=== PATIENT | male | born 1985 | race Caucasian/White ===

== ENCOUNTER → 2018-05-29 08:25 | Outpatient (CLI) | payer BC, SELFPAY ==
--- NOTE | 2018-05-29 08:27 | RAD_ITS ---
STUDY: X-RAY - RIGHT SHOULDER REASON FOR EXAM: Male, 33 years old. Shoulder pain, no injury TECHNIQUE: 3 view(s) of the shoulder. COMPARISON: None. FINDINGS: Normal glenohumeral articulation. Normal acromioclavicular joint. Normal acromion. Normal humeral head and visualized proximal humerus. The soft tissue structures are unremarkable. Normal visualized pulmonary apex. RAD/Shoulder min 2 Views IMPRESSION: Normal x-ray examination of the shoulder. Electronically Signed: Syl Concepcion MD at 4:29 EDT , Service support ,
== END ==
PROVIDERS: Referring Provider Physician Assistant; Visit Provider Physician Assistant
DX: M25.511 Pain in right shoulder (principal)
CPT/HCPCS: 73030

== ENCOUNTER → 2020-02-18 | Outpatient (CLI) | payer OTHER, SELFPAY ==
[2020-02-18 08:16] VITALS: BMI 23.5
--- NOTE | 2020-02-18 08:19 | RAD_ITS ---
STUDY: X-RAY - RIGHT SHOULDER REASON FOR EXAM: Male, 34 years old. PAIN, LIMITED ROM TECHNIQUE: Three view(s) of the shoulder. COMPARISON: 05/29/2018 FINDINGS: Normal glenohumeral articulation. Normal acromioclavicular joint. Normal acromion. Normal humeral head and visualized proximal humerus. The soft tissue structures are unremarkable. Normal visualized pulmonary apex. RAD/Shoulder min 2 Views IMPRESSION: Normal x-ray examination of the shoulder. Electronically Signed: Lawrence Courtney MD at 10:00 EDT , Service support ,
== END | disposition home or self-care (01) ==
LOC: HPRAD 08:19
PROVIDERS: Referring Provider Physician Assistant; Visit Provider Physician Assistant
DX: M25.511 Pain in right shoulder (principal)
CPT/HCPCS: 73030

== ENCOUNTER → 2020-03-03 06:47 | Outpatient (CLI) | payer OTHER, SELFPAY ==
[2020-02-18 08:16] VITALS: BMI 23.5
--- NOTE | 2020-03-03 06:48 | MRI_ITS ---
STUDY: MRI RIGHT SHOULDER REASON FOR EXAM: Male, 34 years old. chronic rt shoulder pain TECHNIQUE: Standardized fat and water weighted pulse sequences were obtained in all 3 orthogonal planes. COMPARISON: X-ray February 18, 2020. FINDINGS: Tendinosis of the supraspinatus. Tendinosis of the infraspinatus with partial intrasubstance distal tendon tear, series 4 image 06/18. Normal subscapularis tendon. Normal teres minor tendon. Normal supraspinatus muscle. Normal infraspinatus muscle. Normal subscapularis muscle. Normal teres minor muscle. Normal glenohumeral articulation. There is small joint effusion. There are small cysts or erosions of the posterior lateral and anterior medial humeral head. Normal biceps labral complex. Normal intracapsular long biceps tendon. Normal labrum. Normal capsulo- ligamentous complex. Normal rotator interval. Normal acromioclavicular articulation. There is a Type II morphology (curved) acromion, with a neutral orientation. There is no subacromial-subdeltoid bursal fluid. Normal visualized coracohumeral and coracoacromial ligaments. Normal quadrilateral space. Normal axillary space. Normal deltoid muscle. Normal trapezius muscle. MRI/Upper Ext Joint Only(Routine) IMPRESSION: Tendinosis with partial tear of the infraspinatus. No full-thickness rotator cuff tear. Electronically Signed: Gabriel Putnam MD at 9:30 EDT , Service support ,
== END ==
PROVIDERS: Referring Provider Physician Assistant; Visit Provider Physician Assistant
DX: M75.111 Incomplete rotator cuff tear or rupture of right shoulder, not specified as traumatic (principal); M24.811 Other specific joint derangements of right shoulder, not elsewhere classified; M25.511 Pain in right shoulder; G89.29 Other chronic pain
CPT/HCPCS: 73221

== ENCOUNTER → 2023-08-11 | Outpatient (CLI) | payer OTHER, SELFPAY ==
--- NOTE | 2023-08-11 15:27 | MRI_ITS ---
EXAM: MR CERVICAL SPINE WITHOUT INTRAVENOUS CONTRAST CLINICAL INDICATION: pain TECHNIQUE: Multiplanar and multisequence MR images of the cervical spine without intravenous contrast were performed. COMPARISON: Cervical spine radiographs, 07/18/2023. FINDINGS: VERTEBRAE: Straightening of the expected cervical lordosis may be in part positional. Normal craniocervical junction and cervicothoracic junction. No spondylolisthesis. SPINAL CORD: Unremarkable in signal and morphology. SOFT TISSUES: No significant abnormality. No prevertebral soft tissue swelling. LYMPH NODES: No significant abnormality. There is no cervical adenopathy. DISCS/SPINAL CANAL/NEURAL FORAMINA: C2-C3: No significant abnormality. Normal disc height and morphology. Normal spinal canal. Normal neuroforamina. C3-C4: No significant abnormality. Normal disc height and morphology. Normal spinal canal. Normal neuroforamina. C4-C5: No significant abnormality. Normal disc height and morphology. Normal spinal canal. Normal neuroforamina. C5-C6: No significant abnormality. Normal disc height and morphology. Normal spinal canal. Normal neuroforamina. C6-C7: Mild disc height loss and disc desiccation. Central disc herniation and mild facet and uncovertebral joint arthrosis. Mild spinal canal stenosis and mild bilateral neural foraminal narrowing. C7-T1: No significant abnormality. Normal disc height and morphology. Normal spinal canal. Normal neuroforamina. MRI/Spine Cervical (Routine) IMPRESSION: Degenerative changes particularly at C6-C7 resulting in mild spinal canal and neural foraminal stenosis at this level. No spinal cord signal abnormality. Electronically Signed: Umair Guerra DO at 17:58 EST ,
--- NOTE | 2023-08-11 15:27 | MRI_ITS ---
EXAM: MR LEFT UPPER EXTREMITY WITHOUT INTRAVENOUS CONTRAST, SHOULDER CLINICAL INDICATION: pain TECHNIQUE: Multiplanar and multisequence MR images of the left shoulder without intravenous contrast. COMPARISON: Left shoulder radiographs, 07/18/2023. FINDINGS: TENDONS: SUPRASPINATUS: Mild insertional signal abnormality of the distal supraspinatus tendon without a discrete tear. INFRASPINATUS: No significant abnormality. Intact. SUBSCAPULARIS: No significant abnormality. Intact. TERES MINOR: No significant abnormality. Intact. BICEPS BRACHII, LONG HEAD: No significant abnormality. The extra-articular biceps tendon is in the bicipital groove. The intra-articular biceps tendon is normal. LIGAMENTS: GLENOHUMERAL: No significant abnormality. Intact. MUSCLES: No significant abnormality. No rotator cuff muscle atrophy. FLUID: No significant abnormality. No joint effusion. No subacromial-subdeltoid space bursal fluid. CARTILAGE: No significant abnormality. Articular cartilage intact. GLENOID LABRUM: Linear peripheral signal abnormality in the anterior and anterior superior glenoid labrum perhaps indicating a tear. BONES/JOINTS: Mild acromioclavicular joint arthrosis. No fracture. No abnormal bone marrow signal. OTHER SOFT TISSUES: No significant abnormality. No rotator interval edema. MRI/Upper Ext Joint Only(Routine) IMPRESSION: 1. Linear peripheral signal abnormality in the anterior and anterior superior glenoid labrum perhaps indicating a tear. This is incompletely assessed on this nonarthrographic exam. 2. Mild acromioclavicular joint arthrosis. 3. Mild supraspinatus insertional tendinopathy. Electronically Signed: Umair Guerra DO at 17:57 EST ,
--- OUTSIDE RECORDS SUMMARY | 2023-08-11 15:39 | XMS RPT_ITS | CCD ---
Author Name Unknown Address [address] [place] [address] Organization [facility] Care Team Providers Care Assistant Manager Quality Management Name Role Phone Caitlin Davis Unavailable Unavailable Unavailable RADHA HORTON Attending Unavail able TABITHA, PHYSICIAN Primary Care Unavailable Caitlin Davis Unavailable MaxjordanChuck reedine Unavailable Unavailable Yaneli Oviedo Unavailable Ms. Yakelni Moore Attending Unavail Ms. Caitlin Norris Primary Care CAITLIN Alva Primary Care Unavailable MD YANELI OVIEDO Referring MD YANELI Chaudhry Attending MD YANELI Chaudhry Attending CAITLIN Alva Primary Care Unavailable MD YANELI OVIEDO Referring Unavailabl e Medications Current Medications Medication Drug Class(es) Dates Sig (Normalized) Sig (Original) oseltamivir 75 mg oral capsule (1 source) Neuraminidase Inhibitor Start: 06-20-2022 End: 06-24-2022 take 1 capsule by mouth twice daily Tamiflu 75 mg oral capsule ; 1 cap(s) orally 2 times a day Quantity: 10 Refills: 0 Ordered: 20-Jun-2022 Yakelin Moore Start: 20-Jun-2022 End: 24-Jun-2022 Generic Substitution Allowed Comments: Check with your doctor before becoming .Finish all this medication unless otherwise directed by prescriber. Completed/Discontinued Medications Medication Drug Class(es) Dates Sig (Normalized) Sig (Original) Multivitamins TABS (3 sources) Multivitamins TA BS Quantity: 0 Refills: 0 Ordered: 24-Apr-2022 DO Active No Reported Medications (2 sources) No Reported Medi cations Quantity: 0 Refills: 0 Ordered: -Aug-2020 DO Active Problems Problem Classification Problem Date Documented Date Episodic/Chronic Contraceptive and procreative management (2 sources) Contraception status; Translations: [Sterilization] Episodic Diabetes mellitus without complication (5 sources) Hyperglycemia; Translations: [Other abnormal glucose] Episodic Fever of unknown origin (3 sources) Fever; Translations: [Fever, unspecified] Onset: 06-20-2022 06-20-2022 Episodic Inflammation; infection of eye (except that caused by tuberculosis or sexually transmitteddisease) (3 sources) Acute infectious conjunctivitis; Translations: [Other mucopurulent conjunctivitis] Episodic Influenza (2 sources) Influenza due to Influenza A virus; Translations: [Influenza with other respiratory manifestations] Onset: 06-20-2022 06-20-2022 Episodic Influenza (1 source) Influenza 06-20-2022 Lymphadenitis (3 sources) Cervical lymphadenopathy; Translations: [Enlargement of lymph nodes] Episodic Other lower respiratory disease (1 source) Shortness of breath; Translations: [Shortness of breath] Onset: 06-20-2022 Episodic Other nervous system disorders (1 source) Anesthesia of skin; Translations: [Anesthesia of skin] Onset: 06-20-2022 Episodic Other screening for suspected conditions (not mental disorders or infectious disease) (14 sources) Patient encounter status; Translations: [Screening for diabetes mellitus] Onset: 06-20-2022 Episodic Screening and history of mental health and substance abuse codes (3 sources) Ex-tobacco user; Translations: [Personal history of tobacco use] Episodic Skin and subcutaneous tissue infections (3 sources) Impetigo; Translations: [Impetigo] Episodic Unclassified (2 sources) FEVER, FATIGUE 06-20-2022 Results Test Name Value Interpretation Reference Range Facil ity Vital Signs Date Time Vital Sign Value Performing Clinician Facility 08-07-2022 15:51-0500 Body height 170.18 cm Caitlin Davis Work Phone: [facility] Work Phone: 08-07-2022 15:51-0500 Body mass index (BMI) [Ratio] 24.43 kg/m2 Caitlin Davis Work Phone: [facility]Jmhqdhb[facility]Iyogfes Work Phone: 08-07-2022 15:51-0500 Body surface area Derived from formula 1.82 m2 Caitlin Davis Work Phone: NL[facility]Amnkban[facility]Gjcmugh Work Phone: 08-07-2022 15:51-0500 Body weight 70.76 kg Caitlin L Baldo Work Phone: PQ-Tkknmfb-Rlbtxxv Work Phone: 08-07-2022 15:51-0500 Respiratory rate 16 /min Caitlin L Baldo Work Phone: [facility] Work Phone: 06-20-2022 23:20-0500 Body temperature 100.04 [degF] Caitlin Davis Other Phone: [facility] 06-20-2022 23:20-0500 Diastolic blood pressure 68 mm[Hg] Caitlin Davis Other Phone: [facility] 06-20-2022 23:20-0500 Heart rate 103 /min Caitlin Davis Other Phone: [facility] 06-20-2022 23:20-0500 Respiratory rate 16 /min Caitlin Baldo Other Phone: [facility] 06-20-2022 23:20-0500 SaO2% (BldA) [Mass fraction] 95 % Caitlin Davis Other Phone: [facility] 06-20-2022 23:20-0500 Systolic blood pressure 110 mm[Hg] Caitlin Davis Other Phone: [facility] 06-20-2022 20:58-0500 Body height 170.1 cm Caitlin Davis Other Phone: [facility] 06-20-2022 20:58-0500 Body weight 68.2 kg Caitlin Davis Other Phone: [facility] 04-24-2022 15:41-0400 Body height 170.18 cm Caitlin L Baldo Work Phone: EC[facility]Wwmxhtx-Pzaelyv Work Phone: 04-24-2022 15:41-0400 Body mass index (BMI) [Ratio] 24.43 kg/m2 Caitlin L Baldo Work Phone: DY[facility]Gcschpy-Oxzibai Work Phone: 04-24-2022 15:41-0400 Body surface area Derived from formula 1.82 m2 Caitlin L Baldo Work Phone: XM-Cxhwmux-Ivedccu Work Phone: 04-24-2022 15:41-0400 Body weight 70.76 kg Caitlin L Baldo Work Phone: LU-Nsnelex-Lmfssyh Work Phone: 04-24-2022 15:41-0400 Diastolic blood pressure 70 mm[Hg] Caitlin Davis Work Phone: IG-Lhnrbds-Gicuxfe Work Phone: 04-24-2022 15:41-0400 Heart rate 74 /min Caitlin Davis Work Phone: BQ-Qayfcjg-Wrvhfnn Work Phone: 04-24-2022 15:41-0400 Systolic blood pressure 130 mm[Hg] Caitlin L Baldo Work Phone: JO-Usszfhf-Ovopvyb Work Phone: 03-14-2021 07:56-0400 Body height 170.18 cm Caitlin L Baldo Work Phone: [facility] Work Phone: 03-14-2021 07:56-0400 Body mass index (BMI) [Ratio] 23.88 kg/m2 Caitlin L Baldo Work Phone: [facility] Work Phone: 03-14-2021 07:56-0400 Body surface area Derived from formula 1.8 m2 Caitlin L Baldo Work Phone: [facility] Work Phone: 03-14-2021 07:56-0400 Body weight 69.15 kg Caitlin Davis Work Phone: [facility] Work Phone: 03-14-2021 07:56-0400 Diastolic blood pressure 70 mm[Hg] Caitlin Davis Work Phone: [facility] Work Phone: 03-14-2021 07:56-0400 Heart rate 72 /min Caitlin Davis Work Phone: [facility] Work Phone: 03-14-2021 07:56-0400 Systolic blood pressure 116 mm[Hg] Caitlin Davis Work Phone: [facility] Work Phone: Encounters Encounter Date Encounter Type Care Provider Facility Start: 10-17-2022 Chart Update Caitlin Davis Work Phone: [facility] DO Work Phone: Start: 08-07-2022 Patient encounter procedure Caitlin Davis Work Phone: [facility] Work Phone: Start: 08-07-2022 ambulatory MD YANELI OVIEDO Fa cility:[id number] Start: 06-20-2022 End: 06-20-2022 Emergency department patient visit Yakelin Moore [facility] Emergency 12 Start: 04-24-2022 Office outpatient ne w 30 minutes Caitlin Davis Work Phone: JI[facility]Tzxdnpk[facility]Todkkqn Work Phone: Start: 04-24-2022 ambulatory CAITLIN DAVIS Facility:[id number] Start: 07-18-2021 End: 07-18-2021 [facility] Start: 03-14-2021 Chart Update Caitlin Mar Davis Work Phone: [facility] Work Phone: Start: 03-14-2021 Periodic preventive med est patient 18-39 yrs Caitlin Davis Work Phone: [facility] Work Phone: Patient encounter status Caitlin Davis Work Phone: [facility] Work Phone: Procedures Date Procedure Procedure Detail Performing Clinician Start: 06-20-2022 End: 06-20-2022 EKG impression Yakelin Moore No history of surgery Caitlin Davis Work Phone: Vasectomy VASECTOMY Yaneli Oviedo Plan of Treatment Date Care Activity Detail Author Start: 08-07-2022 Patient encounter procedure [facility] Start: 08-07-2022 VASECTOMY, Provider: [facility] PROCEDURE RM,[id number], Status: Pen, Time: 4:00 PM VASECTOMY, Provider: [facility] PROCEDURE RM,[id number], Status: Pen, Time: 4:00 PM [facility] Work Phone: Immunizations Immunization Date Immunization Notes Care Provider Erika esparza 06-18-2021 Pfizer-BioNTech COVI D-19 Vacc 30 MCG/0.3ML Intramuscular Suspension Caitlin Manuel Seitz Work Phone: [facility] Work Phone: 05-23-2021 Pfizer-BioNTech COVI D-19 Vacc 30 MCG/0.3ML Intramuscular Suspension Caitlin Manuel Seitz Work Phone: [facility] Work Phone: 05-21-2021 influenza, injectabl e, quadrivalent, preservative free Caitlin Mar Davis Work Phone: [facility]jqjff[facility]Lnwtg[facility] Work Phone: 04-30-2020 influenza, injectabl e, quadrivalent, preservative free Caitlin Davis Work Phone: [facility] Work Phone: 04-13-2019 influenza, injectabl e, quadrivalent, preservative free Caitlin Davis Work Phone: [facility] Work Phone: 05-20-2018 influenza, injectabl e, quadrivalent, preservative free Caitlin Davis Work Phone: [facility] Work Phone: 05-01-2017 influenza, seasonal, injectable, preservative free Caitlin Daivs Work Phone: [facility] Work Phone: 11-05-2011 hepatitis A vaccine, pediatric/adolescent dosage, 2 dose schedule Caitlin Manuel Seitz Work Phone: [facility] Work Phone: 04-11-2007 meningococcal polysaccharide (groups A, C, Y and W-135) diphtheria toxoid conjugate vaccine (MCV4P) Caitlin Manuel Seitz Work Phone: [facility] Work Phone: 02-17-1998 tetanus and diphther ia toxoids, adsorbed, preservative free, for adult use (5 Lf of tetanus toxoid and 2 Lf of diphtheria toxoid) Caitlin L Baldo Work Phone: [facility] Work Phone: 11-29-1992 hepatitis B vaccine, pediatric or pediatric/adolescent dosage Caitlin Manuel Seitz Work Phone: [facility] Work Phone: 07-03-1992 diphtheria, tetanus toxoids and acellular pertussis vaccine, unspecified formulation Caitlin Manuel Seitz Work Phone: [facility] Work Phone: 07-03-1992 measles, mumps and rubella virus vaccine Caitlin Manuel Baldo Work Phone: [facility] Work Phone: 05-05-1992 hepatitis B vaccine, pediatric or pediatric/adolescent dosage Caitlin Davis Work Phone: [facility] Work Phone: 02-02-1992 hepatitis B vaccine, pediatric or pediatric/adolescent dosage Caitlin Davis Work Phone: [facility] Work Phone: 03-03-1988 diphtheria, tetanus toxoids and acellular pertussis vaccine, unspecified formulation Caitlin Davis Work Phone: [facility] Work Phone: 11-27-1987 haemophilus influenz ae type b vaccine, PRP-T conjugate Caitlin Davis Work Phone: [facility] Work Phone: 09-08-1987 measles, mumps and rubella virus vaccine Caitlin Davis Work Phone: [facility] Work Phone: 01-13-1987 diphtheria, tetanus toxoids and acellular pertussis vaccine, unspecified formulation Caitlin Davis Work Phone: [facility] Work Phone: 1986 diphtheria, tetanus toxoids and acellular pertussis vaccine, unspecified formulation Caitlin Davis Work Phone: [facility] Work Phone: 1986 diphtheria, tetanus toxoids and acellular pertussis vaccine, unspecified formulation Caitlin Davis Work Phone: [facility] Work Phone: Payers Date Payer Category Payer Unknown [id number] 1986 Unknown [id number] 1986 Unknown [id number] 1986 Unknown [id number] 1986 Unknown [id number] Unknown Unknown [id number] Social History Date Type Detail Facility Occasional alcohol use Occasional alcohol use [facility] Work Phone: History of Present illness Narrative Note Date & Type Note Facility History of Present illness Narrative Patient is here for a vasectomy consult. Patient is with 2 current Children is ..Denies urgency and frequency No hematuria, No dysuria..denies nocturia. No medication. [facility] Work Phone: Family History No Family History Records FoundUnknown Family Member Name Dates Details Family history of diabetes m ellitus: Father(V18.0, Z83.3) Status:Active Family history of cerebrovas cular accident (CVA): Grandparent(V17.1, Z82.3) Status:Active Unknown Family Member Name Dates Details Family history of cerebrovas cular accident (CVA): Grandparent(V17.1, Z82.3) Status:Active Family history of diabetes m ellitus: Father(V18.0, Z83.3) Status:Active Unknown Family Member Name Dates Details Family history of diabetes m ellitus: Father(V18.0, Z83.3) Status:Active Family history of cerebrovas cular accident (CVA): Grandparent(V17.1, Z82.3) Status:Active Unknown Family Member Name Dates Details Family history of diabetes m ellitus: Father(V18.0, Z83.3) Status:Active Family history of cerebrovas cular accident (CVA): Grandparent(V17.1, Z82.3) Status:Active Unknown Family Member Name Dates Details Family history of diabetes m ellitus: Father(V18.0, Z83.3) Status:Active Family history of cerebrovas cular accident (CVA): Grandparent(V17.1, Z82.3) Status:Active Summary Purpose Advance Directives No Advanced Directives Records FoundNo Advanced Directives Records FoundNo Advanced Directives Records FoundNo Advanced Directives Records Found Chief Complaint vas consultvas Additional Source Comments (unrecognized sect ion and content) No Status Records FoundNo Status Records FoundNo Status Records FoundNo Status Records Found INFORMATION SOURCE (unrecogn ized section and content) DATE CREATED AUTHOR AUTHOR'S ORGANIZ ATION 06/25/2022 [facility] DATE CREATED AUTHOR AUTHOR'S ORGANIZ ATION 08/24/2022 [employer] DATE CREATED AUTHOR AUTHOR'S ORGANIZ ATION 10/18/2022 [facility] <item> Privacy Markings (unrecogniz ed section and content) Section Author: Maggie Somers PROHIBITION ON REDISCLOSURE OF CONFIDENTIAL INFORMATION This notice accompanies a disclosure of information concerning a client made to you with the consent of such client. FOR RECORDS PERTAINING TO PATIENTS WHO ARE OR HAVE BEEN ENROLLED IN A CHEMICAL DEPENDENCY/SUBSTANCEABUSE PROGRAM, SOME INFORMATION MAY BE OMITTED. This clinical summary was aggregated from multiple sources. Caution should be exercised in using it in the provision of clinical care. This summary normalizes information from multiple sources, and as a consequence, information in this document may materially change the coding, format and clinical context of patient data. In addition, data may be omitted in some cases. CLINICAL DECISIONS SHOULD BE BASED ON THE PRIMARY CLINICAL RECORDS. [employer] provides no warranty or guarantee of the accuracy or completeness of information in this document.
== END | disposition home or self-care (01) ==
LOC: MRI 15:24
PROVIDERS: Referring Provider Orthopaedic Surgery Sports Medicine; Visit Provider Orthopaedic Surgery Sports Medicine
DX: M54.12 Radiculopathy, cervical region (principal); M25.512 Pain in left shoulder
CPT/HCPCS: 72141; 73221